=== PATIENT | male | born 1975 ===

== ENCOUNTER → 2021-11-15 | Day surgery (SDC) | payer OTHER ==
[~2021-11-15] VITALS: Ht 175.3 cm; Wt 104.3 kg
[~2021-11-15] MED LIST: DAILY VALUE1 EACH PO
[2021-11-15 08:22] LABS: HCT 48.9 % (42.0-52.0); HGB 16.8 g/dl (13.2-18.0); MCH 29.5 pg (25.0-31.0); MCHC 34.4 g/dL (32.0-36.0); MCV 85.8 fL (78.0-100.0); MPV 9.2 fL (6.0-9.5); RBC 5.7 M/uL (4.70-6.00); RDW 12.9 % (11.5-14.0); WBC 6.9 K/uL (4.0-10.5)
[2021-11-15 08:43] LABS: ALBUMIN 4.2 g/dL (3.4-5.0); BILIRUBIN - TOTAL 0.7 mg/dL (0.2-1.0); BUN/CREAT RATIO (CALC) 13.9 RATIO; CREATININE 1.08 mg/dL (0.67-1.17); GLOBULIN (CALCULATION) 3.3 g/dL; POTASSIUM 4.1 mmol/L (3.5-5.1); TOTAL PROTEIN 7.5 g/dL (6.4-8.2)
== END | disposition home or self-care (01) ==
LOC: FAS 07:49
PROVIDERS: Surgery
DX: Z12.11 Encounter for screening for malignant neoplasm of colon (principal); Z80.0 Family history of malignant neoplasm of digestive organs
CPT/HCPCS: 36415; 80053; J2250; J2704; J7120